=== PATIENT | female | born 1990 | race Caucasian/White ===

== ENCOUNTER 2018-07-17 17:55 | Emergency (ER) | payer BC, OTHER ==
[~2018-07-17] VITALS: Wt 135.0 kg
[2018-07-17 18:02] VITALS: BP 126/65; PULSE 81; RESP 19
--- NOTE | 2018-07-17 20:31 | ERD ---
ER Documentation Chief Complaint Chief Complaint bib self, cc: lac on left hand index finger, HPI 28-year-old female [id number] complaining of laceration to the left second finger that sustained today when she was in the kitchen cutting with a knife. She has a laceration to the proximal aspect on the dorsal surface of her left second digit. No numbness or tingling or loss of range of motion. Her tetanus vaccination is up-to-date. ROS All systems reviewed and are negative except as per history of present illness. Allergies Allergies: Coded Allergies: No Known Allergy (Unverified , 07/17/18) PMhx/Soc Medical and Surgical Hx: pt denies Medical Hx, pt denies Surgical Hx Hx Alcohol Use: No Hx Substance Use: No Smoking Status: Never smoker FmHx Family History: No diabetes Physical Exam Vitals Vital Signs Date Temp Pulse Resp B/P (MAP) Pulse Ox O2 O2 Flow FiO2 Time Delivery Rate 07/17/18 98.2 81 19 126/65 100 18:02 (85) Physical Exam Const: No acute distress Head: Atraumatic Eyes: Normal Conjunctiva ENT: Normal External Ears, Nose and Mouth. Neck: Full range of motion. No meningismus. Resp: Clear to auscultation bilaterally Cardio: Regular rate and rhythm, no murmurs Hand -left Skin: 2 cm linear laceration on dorsal surface of left proximal second finger before PIP joint Compartments: Soft Sensation: Intact shoulder/pinky/middle finger/thumb web space Bones: Nontender Snuffbox: Nontender Joints: No effusion Wrist: Flex/Ext: Normal Uln/Radial deviation: Normal Pron/Supination Normal Finger: Flex/Ext: Normal Add/abd: Normal Thumb: Flex/Ext: Normal Opposition: Normal Thumbs up: Normal Procedures/MDM The skin edges of the laceration were infiltrated with 1% lidocaine . The laceration was irrigated with copious amounts of normal saline. The wound was prepped with Betadine. On examination under direct light, there was no foreign body seen. The laceration was repaired with simple interrupted sutures. After repair, there was no continuing bleeding on repair and there did not appe ar to be any complication related to repair. The patient tolerated the procedure well and the wound was appropriately dressed and bandaged. I recommended the patient return in 2 days for a wound check and 7-10 days for removal of sutures. Patient counseled regarding my diagnostic impression and care plan. Prior to discharge all questions answered. Pt agrees with treatment plan and understands strict return precautions. Pt is instructed to follow up with primary care provider within 24-48 hours. Precautionary instructions provided including instructions to return to the ER if not improving or for any worsening or changing symptoms or concerns. Departure Diagnosis: Primary Impression: Laceration Condition: Stable NELLY OLEARY PA-C Jul 17, 2018 20:31
== END 2018-07-17 21:45 | disposition home or self-care (01) ==
LOC: FTE 17:55
DX: S61.211A Laceration without foreign body of left index finger without damage to nail, initial encounter (principal); W26.0XXA Contact with knife, initial encounter; Y92.000 Kitchen of unspecified non-institutional (private) residence as the place of occurrence of the external cause

== ENCOUNTER 2018-07-26 17:39 | Emergency (ER) | payer BC ==
[~2018-07-26] VITALS: Wt 129.0 kg
[2018-07-26 17:42] VITALS: BP 133/82; PULSE 79; RESP 19
--- NOTE | 2018-07-26 17:58 | ERD ---
ER Documentation Chief Complaint Chief Complaint bib self, cc: suture removal on finger HPI 28-year-old female presents for suture evaluation on her right index finger. It is day #9. She has no restricted range of motion, weakness, bleeding or discharge. ROS All systems reviewed and are negative except as per history of present illness. Allergies Allergies: Coded Allergies: No Known Allergy (Unverified , 07/17/18) PMhx/Soc Hx Alcohol Use: No Hx Substance Use: No Physical Exam Vitals Vital Signs Date Temp Pulse Resp B/P (MAP) Pulse Ox O2 O2 Flow FiO2 Time Delivery Rate 07/26/18 98.2 79 19 133/82 100 17:42 (99) Physical Exam Const: No acute distress Head: Atraumatic Eyes: Normal Conjunctiva ENT: Normal External Ears, Nose and Mouth. Neck: Full range of motion. No meningismus. Resp: Clear to auscultation bilaterally Cardio: Regular rate and rhythm, no murmurs Abd: Soft, non tender, non distended. Normal bowel sounds Skin: No petechiae or rashes Back: No midline or flank tenderness Ext: No cyanosis, or edema. Healing laceration on right index without redness, bleeding or discharge, restricted range of motion weakness. Neur: Awake and alert Psych: Normal Mood and Affect Procedures/MDM Sutures removed and Steri-Strips applied. Patient has satisfactory healing on the right index finger laceration sustained 9 days ago. She will be discharged home with return precautions for redness, fevers, weakness, bleeding, new worsening symptoms. Departure Diagnosis: Primary Impression: Encounter for removal of sutures Condition: Stable Patient Instructions: Suture Removal, No Complication SINAN JETER MD Jul 26, 2018 17:58
== END 2018-07-26 18:14 | disposition home or self-care (01) ==
LOC: FTE 17:39
DX: Z48.02 Encounter for removal of sutures (principal)
CPT/HCPCS: 99281